=== PATIENT | female | born 1940 | race Caucasian/White ===

== ENCOUNTER → 2017-02-22 | Outpatient (CLI) | payer MEDICARE, BC ==
[~2017-02-22] MED LIST: CHOL200024 PO; LACT1CAP35 PO; LEVO112T2 PO; MELA3TAB PO; MULT-717 PO
[2017-02-22 10:45] LABS: BLOOD UREA NITROGEN 13 mg/dL (7-18)
== END | disposition home or self-care (01) ==
LOC: STAR 09:10
PROVIDERS: ATTEND Orthopaedic Surgery
DX: M17.11 Unilateral primary osteoarthritis, right knee (principal); R79.9 Abnormal finding of blood chemistry, unspecified
CPT/HCPCS: 36415; 80048; 81001; 85025; 87081; 87086

== ENCOUNTER 2017-03-01 08:49 | Inpatient (IN) | payer MEDICARE, BC ==
[~2017-03-01] VITALS: Ht 170.2 cm; Wt 83.7 kg
[~2017-03-01 08:49] MED LIST changes: +EPINEPHRINE 1 MG/ML, 1ML ONE; +KETOROLAC 60 MG/2 ML ONE; +ROPIvacaine/PF 0.5%, 20 ML ONE; +SODIUM CHLORIDE 0.9% 50 ML ONE; +TRANEXAMIC ACID 100 MG/ML, 10ML ONE; +VANCOMYCIN 1,000 MG ONE
[2017-03-01] MEDS ORDERED: LACTATED RINGERS 1,000 ML IV SCH (09:18)
[2017-03-01 09:22] VITALS: BP 166/93
[2017-03-01] MEDS ORDERED: FENTANYL PF 250 MCG/5ML ONE (10:01)
[2017-03-01] MEDS ORDERED: MIDAZOLAM 1 MG/ML, 2ML ONE (10:01)
[2017-03-01] MEDS ORDERED: BUPIVACAINE/PF-EPI 0.5% 1:200K ONE (10:37)
[2017-03-01] MEDS ORDERED: CEFAZOLIN 1,000 MG ONE (10:48)
[2017-03-01] MEDS ORDERED: DEXAMETHASONE 4 MG/ML, 1ML ONE (10:48)
[2017-03-01] MEDS ORDERED: PROPOFOL 10 MG/ML, 20ML ONE (10:48)
[2017-03-01] MEDS ORDERED: ONDANSETRON 2MG/ML, 2ML ONE (10:48)
[2017-03-01] MEDS ORDERED: ACETAMINOPHEN 325 MG TABLET PO PRN (12:00)
[2017-03-01] MEDS ORDERED: HYDROmorphone 1 MG/ML, 1ML IV PRN ×2 (12:00→12:30)
[2017-03-01] MEDS ORDERED: ONDANSETRON 2MG/ML, 2ML IVPush PRN (12:00)
[2017-03-01] MEDS ORDERED: LABETALOL 5MG/ML, 20ML IV PRN (12:00)
[2017-03-01] MEDS ORDERED: METOCLOPRAMIDE 5 MG/ML, 2ML IV PRN (12:00)
[2017-03-01] MEDS ORDERED: FENTANYL PF 100 MCG/2ML IV PRN (12:00)
[2017-03-01] MEDS ORDERED: OXYcodone 5 MG/5 ML ORAL.SOL UDC PO PRN (12:00)
[2017-03-01] MEDS ORDERED: hydrALAzine 20 MG/ML, 1ML IV PRN (12:00)
[2017-03-01] MEDS ORDERED: DIAZEPAM 5 MG TABLET PO PRN (12:30)
[2017-03-01] MEDS: OXYcodone IR 5MG TABLET PO SCH ×3 (12:30→20:30)
[2017-03-01] MEDS ORDERED: ZOLPIDEM 5MG TABLET PO PRN (12:30)
[2017-03-01] MEDS ORDERED: DIPHENHYDRAMINE 50 MG CAPSULE PO PRN (12:30)
[2017-03-01] MEDS ORDERED: MAGNESIUM HYDROXIDE 8%, 30ML UDC PO PRN (12:30)
[2017-03-01] MEDS ORDERED: ONDANSETRON 2MG/ML, 2ML IV PRN (12:30)
[2017-03-01] MEDS ORDERED: BISACODYL 10 MG SUPP PR PRN (12:30)
[2017-03-01] MEDS ORDERED: SENNA/DOCUSATE TABLET PO PRN (12:30)
[2017-03-01] MEDS ORDERED: PROMETHAZINE 25 MG/ML, 1ML IM PRN (12:30)
[2017-03-01] MEDS ORDERED: OXYcodone IR 5MG TABLET PO PRN (12:30)
[2017-03-01] MEDS ORDERED: PROMETHAZINE 12.5 MG SUPP PR PRN (12:30)
[2017-03-01] MEDS ORDERED: ALUMINUM/MAG/SIMETHICONE 30 ML UDC PO PRN (12:30)
[2017-03-01] MEDS: ACETAMINOPHEN 650 MG/20.3 ML UDC PO SCH ×3 (12:30→20:25)
[2017-03-01] MEDS ORDERED: ONDANSETRON 4 MG TABLET PO PRN (12:30)
[2017-03-01] MEDS ORDERED: OXYcodone 5 MG/5 ML ORAL.SOL UDC ONE (12:31)
[2017-03-01] MEDS ORDERED: ACETAMINOPHEN 650 MG/20.3 ML UDC ONE (12:31)
[2017-03-01] MEDS ORDERED: TRANEXAMIC ACID 1,000 MG in SODIUM CHLORIDE 0.9% 100 ML IVPB ONE (12:45)
[2017-03-01] MEDS: D5%-0.45% NACL 1,000 ML IV SCH ×2 (14:09→20:08)
[2017-03-01 14:18] VITALS: BP 134/83
[2017-03-01] MEDS: TAMSULOSIN 0.4 MG CAP.ER.24H PO SCH (17:30)
[2017-03-01] MEDS: CEFAZOLIN PMX 2GM/50ML 50 ML IVPB SCH (18:13)
[2017-03-01] MEDS: ASPIRIN 81 MG TABLET EC PO SCH (18:13)
[2017-03-01 18:37] VITALS: BP 130/72
[2017-03-01] MEDS: DOCUSATE 100 MG CAPSULE PO SCH (20:25)
[2017-03-01] MEDS ORDERED: MELATONIN 3 MG TABLET PO SCH (21:00)
[2017-03-01 23:23] VITALS: BP 151/85
[2017-03-02] MEDS: OXYcodone IR 5MG TABLET PO SCH ×4 (00:26→12:28)
[2017-03-02] MEDS: ACETAMINOPHEN 650 MG/20.3 ML UDC PO SCH ×4 (00:26→12:27)
[2017-03-02] MEDS: D5%-0.45% NACL 1,000 ML IV SCH ×2 (01:31→12:21)
[2017-03-02] MEDS: CEFAZOLIN PMX 2GM/50ML 50 ML IVPB SCH (01:57)
[2017-03-02 03:41] VITALS: BP 130/72
[2017-03-02] MEDS: ASPIRIN 81 MG TABLET EC PO SCH (05:42)
[2017-03-02] MEDS ORDERED: LEVOTHYROXINE 112 MCG TABLET PO SCH (06:00)
[2017-03-02] MEDS ORDERED: DEXAMETHASONE 4 MG/ML, 1ML IVPush SCH (06:00)
[2017-03-02 07:00] VITALS: BP 135/74
[2017-03-02] MEDS: DOCUSATE 100 MG CAPSULE PO SCH (08:32)
[2017-03-02] MEDS: TAMSULOSIN 0.4 MG CAP.ER.24H PO SCH (08:37)
[2017-03-02] MEDS ORDERED: MULTIVITAMIN 1 TABLET PO SCH (09:00)
[2017-03-02] MEDS ORDERED: MULTIVITAMINS/MINERALS TABLET PO SCH (09:00)
[2017-03-02] MEDS ORDERED: CHOLECALCIFEROL 1,000 UNIT TABLET PO SCH (09:00)
[2017-03-02] MEDS ORDERED: LACTOBACILLUS CHEW TABLET PO SCH (09:00)
[2017-03-02] MEDS ORDERED: OXYC5CAP4 PO (12:52)
[2017-03-02] MEDS ORDERED: DIAZ5TAB PO (12:53)
[2017-03-02] MEDS ORDERED: KETOROLAC 30 MG/1 ML IV SCH (14:30)
== END 2017-03-02 13:15 | disposition home or self-care (01) | DRG 470 ==
LOC: ORIP 08:49 → 4NOR 13:49 → DCLOUNGE 03-02 12:46
PROVIDERS: ADMIT Orthopaedic Surgery; ATTEND Orthopaedic Surgery
PROC: 0SRC0J9 Replacement of Right Knee Joint with Synthetic Substitute, Cemented, Open Approach (ICD-10-PCS; principal; 2017-03-01 11:30)
DX: M17.11 Unilateral primary osteoarthritis, right knee (principal); E03.9 Hypothyroidism, unspecified
CPT/HCPCS: 36415; 85014; 85018; C1713; J0171; J0690; J1100; J1885; J2250; J2405; J2704; J2795; J3010; J3370; C1776; J7120

== ENCOUNTER 2021-04-30 12:32 | Day surgery (SDC) | payer MEDICARE, BC ==
[~2021-04-30] VITALS: Ht 172.7 cm; Wt 79.5 kg
[~2021-04-30 12:32] MED LIST changes: +DIAZ5TAB PO; -EPINEPHRINE 1 MG/ML, 1ML ONE; -KETOROLAC 60 MG/2 ML ONE; -MELA3TAB PO; +MELA3TAB31 PO; +OXYC5CAP2 PO; -ROPIvacaine/PF 0.5%, 20 ML ONE; -SODIUM CHLORIDE 0.9% 50 ML ONE; -TRANEXAMIC ACID 100 MG/ML, 10ML ONE; -VANCOMYCIN 1,000 MG ONE
[2021-04-30] MEDS ORDERED: LIDOCAINE 2%, 20ML ONE (13:09)
== END 2021-04-30 14:25 | disposition home or self-care (01) ==
LOC: CACL 12:32
PROVIDERS: ATTEND Internal Medicine Cardiovascular Disease
DX: I63.89 Other cerebral infarction (principal); R00.2 Palpitations; I10 Essential (primary) hypertension; E78.5 Hyperlipidemia, unspecified; Z86.73 Personal history of transient ischemic attack (TIA), and cerebral infarction without residual deficits; Z88.0 Allergy status to penicillin; Z79.899 Other long term (current) drug therapy
CPT/HCPCS: 33285; C1764

== ENCOUNTER 2021-05-27 17:36 | Emergency (ER) | payer MEDICARE, BC ==
[~2021-05-27] VITALS: Ht 172.7 cm; Wt 80.0 kg
[2021-05-27 18:05] LABS: MICROSCOPIC NOT IND
[2021-05-27] MEDS ORDERED: SODIUM CHLORIDE FLUSH 10ML SYR IVF ONE (18:30)
[2021-05-27 18:33] LABS: RED CELL DISTRIBUTION WIDTH 15.9 % (9.6-15.2)
[2021-05-27 18:35] LABS: BASOPHILS % (AUTO) 1 % (0-1); EOSINOPHILS % (AUTO) 1 % (1-7); LYMPHOCYTES % (AUTO) 16 % (22-44); MEAN CORPUSCULAR HEMOGLOBIN 30.7 pg (27.0-34.8); MEAN CORPUSCULAR HGB CONC 33.1 g/dL (32.4-35.8); MEAN PLATELET VOLUME 10.9 fL (7.4-10.4); MONOCYTES % (AUTO) 9 % (2-9); NEUTROPHILS % (AUTO) 74 % (42-75); PLATELET COUNT 179 x10^3/uL (130-400); RED BLOOD COUNT 4.41 x10^6/uL (3.82-5.3)
[2021-05-27 18:37] LABS: ALANINE AMINOTRANSFERASE 33 U/L (12-78); ALBUMIN 3.3 g/dL (3.4-5.0); ANION GAP 8 mmol/L (5-15); CALCIUM 8.8 mg/dL (8.5-10.1); CHLORIDE 108 mmol/L (98-107); CREATININE 0.84 mg/dL (0.55-1.02)
[2021-05-27 18:39] LABS: ALKALINE PHOSPHATASE 86 U/L (45-117); BILIRUBIN,TOTAL 0.7 mg/dL (0.2-1.0); TOTAL PROTEIN 6.5 g/dL (6.4-8.2)
--- NOTE | 2021-05-27 20:11 | NUR ---
LATE ENTRY: biba for increased "shakiness", the urge to pee, and sob. pt stating "this body is not behaving" PT COMPLAINING OF ABDOMINAL PAIN AND THE NEED TO PEE. BLADDER SCAN SHOWED >999ML IN BLADDER. INDEWLLING CATH PLACED ORDERED WITH THE ASSISTANCE OF TAVO FOFANA.
--- NOTE | 2021-05-27 20:13 | NUR ---
PT RESTING IN BED. STATES RELIEF WITH CATH. VSS. NADN.
[2021-05-27 20:39] VITALS: BP 119/62
--- NOTE | 2021-05-27 20:39 | NUR ---
PT RESTING IN BED. VSS. NADN. TO GO TO CT
--- NOTE | 2021-05-27 20:56 | NUR ---
REPORT TO JAYNE FOFANA
--- NOTE | 2021-05-27 22:24 | NUR ---
ERP AT BEDSIDE.
--- NOTE | 2021-05-27 23:25 | NUR ---
patient and son updated about plan of d/c and follow up with urology. son trained on how to drain and exchange bags for figueroa catheter.
== END 2021-05-27 23:31 | disposition home or self-care (01) ==
LOC: ED 21:51
DX: R33.9 Retention of urine, unspecified (principal); R25.1 Tremor, unspecified; R94.31 Abnormal electrocardiogram [ECG] [EKG]; Z86.73 Personal history of transient ischemic attack (TIA), and cerebral infarction without residual deficits
CPT/HCPCS: 36415; 51702; 74176; 80053; 81003; 83690; 85025; 93005; 99285

== ENCOUNTER 2021-05-29 01:47 | Emergency (ER) | payer MEDICARE, BC ==
[~2021-05-29] VITALS: Ht 170.2 cm; Wt 75.6 kg
[2021-05-29 01:48] VITALS: BP 119/52
--- NOTE | 2021-05-29 02:40 | NUR ---
PT AMBULATED TO ROOM. C/O BLADDER RETENTION AND LEAKING BRAUN CATHETER PLACED 2 DAYS AGO IN THE ER. PT HAS AN UROLOGY CONSULT AND VISIT ON MONDAY. PTS BRAUN WAS CHECKED AND TROUBLE SHOOTING OF IT. CATHETER HAS NOT BEEN DRAINING AND LEAKED INTO HER BRIEFS. PTS CATHETER BALLOON DEFLATED AND CATH CLEANSED WITH BETADINE AND REPOSITIONED. PT TOLERATED WELL. CATHETER IMMEDIATELY BEGAN DRAINING DARK YELLOW/TAVO URINE. NO BLOOD NOTED. BALLOON SECURED AND INFLATED WITH 10ML OF NS. LEG CATHETER SECUREMENT INTACT.
--- NOTE | 2021-05-29 02:53 | NUR ---
F/U AND D/C INSTRUCTIONS GIVEN TO PT AND HER SON, AND THEY V/U. PT PROVIDED WITH TWO LEG SECUREMENT PATCHES FOR USE IF THIS ONE COMES OFF. PT AMBULATED TO DISCHARGE DESK.
== END 2021-05-29 02:55 | disposition home or self-care (01) ==
LOC: ED 02:00
DX: T83.031A Leakage of indwelling urethral catheter, initial encounter (principal); R33.9 Retention of urine, unspecified; Z86.73 Personal history of transient ischemic attack (TIA), and cerebral infarction without residual deficits; Z88.0 Allergy status to penicillin
CPT/HCPCS: 99284